=== PATIENT | female | born 1950 | race Caucasian/White ===

== ENCOUNTER → 2016-09-07 | Outpatient (CLI) | payer MEDICARE | END | disposition home or self-care (01) | LOC: PCVCCLINIC 09:19 | PROVIDERS: ATTEND Internal Medicine Cardiovascular Disease | DX: E78.5 Hyperlipidemia, unspecified (principal); I25.10 Atherosclerotic heart disease of native coronary artery without angina pectoris; I10 Essential (primary) hypertension; E11.9 Type 2 diabetes mellitus without complications; I42.9 Cardiomyopathy, unspecified; R07.89 Other chest pain | CPT/HCPCS: 80061; 93005; G0463 ==

== ENCOUNTER → 2017-03-23 | Outpatient (CLI) | payer MEDICARE | END | disposition home or self-care (01) | LOC: PCVCCLINIC 11:13 | PROVIDERS: ATTEND Internal Medicine Cardiovascular Disease | DX: I25.10 Atherosclerotic heart disease of native coronary artery without angina pectoris (principal); E78.4 Other hyperlipidemia; R42 Dizziness and giddiness; R53.83 Other fatigue; E11.9 Type 2 diabetes mellitus without complications; R06.01 Orthopnea; R07.89 Other chest pain; M19.90 Unspecified osteoarthritis, unspecified site; I10 Essential (primary) hypertension; Z96.652 Presence of left artificial knee joint; Z79.82 Long term (current) use of aspirin; Z79.4 Long term (current) use of insulin; Z88.0 Allergy status to penicillin; Z88.8 Allergy status to other drugs, medicaments and biological substances | CPT/HCPCS: 80061; 93005; G0463 ==

== ENCOUNTER → 2017-04-01 | Outpatient (CLI) | payer MEDICARE ==
[~2017-04-01] MED LIST: REGADENOSON 0.4 MG/5 ML DISP.SYRIN. IV ONE
--- NOTE | 2017-04-01 12:31 | PCVCIMAG ---
APPROVED REPORT Study performed: 04/01/2017 08:41:30 EXAM: Comprehensive 2D, Doppler, and color-flow Echocardiogram Patient Location: Echo lab Status: routine BSA: 2.14 HR: 66 bpmBP: 144/74 mmHg Rhythm: NSR Other Information Study Quality: AdequateTechnically Limited Technically limited study due to body habitus. Risk Factors: Cardiac Risk Factors: DM Indications Diabetes Dyspnea CAD Cardiomyopathy 2D Dimensions LVEF(%): 34.24 (>50%) IVSd: 12.36 (7-11mm) LVDd: 39.22 mm PWd: 11.55 (7-11mm) LVDs: 32.93 (25-40mm) Left Atrium: 36.58 (27-40mm) Aortic Root: 29.36 mm LV Single Plane 4CH: 50.04 % LV Single Plane 2CH: 47.69 %Cooper's LVEF: 48.87 % Biplane EF: 49.6 % Volumes Left Atrial Volume (Systole) Single Plane 4CH: 78.04 mLSingle Plane 2CH: 91.70 mL LA ESV Index: 41.00 mL/m2 Aortic Valve AoV Peak Emeka.: 1.90 m/s AO Peak Gr.: 14.37 mmHgLVOT Max P.99 mmHg LVOT Max V: 1.22 m/s Mitral Valve MV Peak Gr.: 13.42 mmHg MV Mean Gr.: 4.95 mmHgE/A Ratio: 1.2 MV Decel. Time: 344.19 ms MV E Max Emeka.: 1.69 m/s MV A Emeka.: 1.41 m/s MV Max Emeka.: 1.83 m/s MV Mean Emeka.: 1.01 m/s MV VTI: 598.50 mm MV PHT: 113.30 ms MVA (PHT): 1.94 cm2 IVRT: 83.04 ms Pulmonary Valve PV Peak Emeka.: 1.23 m/sPV Peak Gr.: 6.04 mmHg Pulmonary Vein P Vein S: 0.55 m/sP Vein A: 0.33 m/s P Vein D: 0.63 m/sP Vein A Dur.: 145.3 msec P Vein S/D Ratio: 0.87 Tricuspid Valve TR Peak Emeka.: 2.42 m/s TR Peak Gr.: 23.35 mmHg Left Ventricle The left ventricle is normal size. There is normal LV segmental wall motion. Mild concentric left ventricular hypertrophy. Left ventricular systolic function is within lower limits of normal. LVEF is 50%. Grade II - pseudonormal filling dynamics. Right Ventricle The right ventricle is normal size. The right ventricular systolic function is normal. Atria Left atrium is mild-moderately dilated. The right atrium size is normal. Aortic Valve The Aortic valve is moderately sclerotic. No aortic regurgitation is present. There is no aortic valvular stenosis. Mitral Valve Calcified mitral apparatus causing mitral stenosis. There is no mitral valve regurgitation noted. Mild mitral stenosis. Calculated mitral valve area is 1.9 cm2 with mean pressure gradient of 5 mmHg. Tricuspid Valve The tricuspid valve is normal in structure. Trace tricuspid regurgitation with PAP of 30 mmHg. Pulmonic Valve The pulmonary valve is normal in structure. Trace pulmonic regurgitation. Great Vessels The aortic root is normal in size. IVC is normal in size and collapses with >50% inspiration Pericardium There is no pericardial effusion. <Conclusion> The left ventricle is normal size. Mild concentric left ventricular hypertrophy. LVEF is 50%. Grade II - pseudonormal filling dynamics. The right ventricle is normal size. Left atrium is mild-moderately dilated. The Aortic valve is moderately sclerotic. Calcified mitral apparatus causing mitral stenosis. Mild mitral stenosis. Calculated mitral valve area is 1.9 cm2 with mean pressure gradient of 5 mmHg. Trace tricuspid regurgitation with PAP of 30 mmHg. There is no pericardial effusion.
== END | disposition home or self-care (01) ==
LOC: PCVCIMAG 08:21
PROVIDERS: ATTEND Internal Medicine Cardiovascular Disease
DX: I08.1 Rheumatic disorders of both mitral and tricuspid valves (principal); I25.10 Atherosclerotic heart disease of native coronary artery without angina pectoris; E11.9 Type 2 diabetes mellitus without complications; I10 Essential (primary) hypertension; E78.4 Other hyperlipidemia; M19.90 Unspecified osteoarthritis, unspecified site; Z96.652 Presence of left artificial knee joint; Z79.82 Long term (current) use of aspirin; Z79.4 Long term (current) use of insulin; Z79.899 Other long term (current) drug therapy; Z88.0 Allergy status to penicillin; Z88.8 Allergy status to other drugs, medicaments and biological substances; Z95.1 Presence of aortocoronary bypass graft; Z95.5 Presence of coronary angioplasty implant and graft
CPT/HCPCS: 93306; J2785

== ENCOUNTER → 2017-10-04 | Outpatient (CLI) | payer MEDICARE | END | disposition home or self-care (01) | LOC: PCVCCLINIC 09:48 | DX: I25.10 Atherosclerotic heart disease of native coronary artery without angina pectoris (principal); I10 Essential (primary) hypertension; E78.00 Pure hypercholesterolemia, unspecified; I42.9 Cardiomyopathy, unspecified; I74.9 Embolism and thrombosis of unspecified artery; Z79.899 Other long term (current) drug therapy; Z79.82 Long term (current) use of aspirin | CPT/HCPCS: 80061; 93005; G0463 ==

== ENCOUNTER → 2018-05-24 | Outpatient (CLI) | payer MEDICARE | END | disposition home or self-care (01) | LOC: PCVCCLINIC 11:15 | PROVIDERS: ATTEND Internal Medicine Cardiovascular Disease | DX: I11.0 Hypertensive heart disease with heart failure (principal); I50.32 Chronic diastolic (congestive) heart failure; I25.10 Atherosclerotic heart disease of native coronary artery without angina pectoris; E78.00 Pure hypercholesterolemia, unspecified; E11.9 Type 2 diabetes mellitus without complications; J44.9 Chronic obstructive pulmonary disease, unspecified; Z79.4 Long term (current) use of insulin; Z79.82 Long term (current) use of aspirin; Z79.899 Other long term (current) drug therapy | CPT/HCPCS: 93005; G0463 ==

== ENCOUNTER → 2018-07-20 | Outpatient (CLI) | payer MEDICARE | END | disposition home or self-care (01) | LOC: PCVCCLINIC 13:00 | PROVIDERS: ATTEND Internal Medicine Cardiovascular Disease | DX: I13.0 Hypertensive heart and chronic kidney disease with heart failure and stage 1 through stage 4 chronic kidney disease, or unspecified chronic kidney disease (principal); N18.3 Chronic kidney disease, stage 3 (moderate); I50.32 Chronic diastolic (congestive) heart failure; E11.22 Type 2 diabetes mellitus with diabetic chronic kidney disease; R00.1 Bradycardia, unspecified; I25.10 Atherosclerotic heart disease of native coronary artery without angina pectoris; E78.5 Hyperlipidemia, unspecified; I25.2 Old myocardial infarction; Z88.8 Allergy status to other drugs, medicaments and biological substances; Z79.4 Long term (current) use of insulin; Z79.82 Long term (current) use of aspirin | CPT/HCPCS: 93005; G0463 ==

== ENCOUNTER → 2018-11-28 | Outpatient (CLI) | payer MEDICARE | END | disposition home or self-care (01) | LOC: PCVCCLINIC 15:00 | PROVIDERS: ATTEND Internal Medicine Cardiovascular Disease | DX: I25.10 Atherosclerotic heart disease of native coronary artery without angina pectoris (principal); R07.9 Chest pain, unspecified; I42.9 Cardiomyopathy, unspecified; I74.9 Embolism and thrombosis of unspecified artery; R00.1 Bradycardia, unspecified; R42 Dizziness and giddiness; R53.83 Other fatigue; I11.0 Hypertensive heart disease with heart failure; I50.9 Heart failure, unspecified; E11.9 Type 2 diabetes mellitus without complications; E78.5 Hyperlipidemia, unspecified; I25.2 Old myocardial infarction; Z88.8 Allergy status to other drugs, medicaments and biological substances; Z79.899 Other long term (current) drug therapy; Z79.82 Long term (current) use of aspirin | CPT/HCPCS: 36415; 93005; G0463 ==

== ENCOUNTER → 2019-01-03 | Outpatient (CLI) | payer MEDICARE | END | disposition home or self-care (01) | LOC: PCVCCLINIC 13:00 | PROVIDERS: ATTEND Nurse Practitioner Adult Health | DX: I25.10 Atherosclerotic heart disease of native coronary artery without angina pectoris (principal); I12.9 Hypertensive chronic kidney disease with stage 1 through stage 4 chronic kidney disease, or unspecified chronic kidney disease; E11.22 Type 2 diabetes mellitus with diabetic chronic kidney disease; N18.4 Chronic kidney disease, stage 4 (severe); I42.9 Cardiomyopathy, unspecified; E78.5 Hyperlipidemia, unspecified; E78.00 Pure hypercholesterolemia, unspecified; Z88.0 Allergy status to penicillin; Z88.6 Allergy status to analgesic agent; Z88.1 Allergy status to other antibiotic agents; Z88.5 Allergy status to narcotic agent | CPT/HCPCS: 36415; 80061; 93005; G0463 ==